=== PATIENT | female | born 1965 | race Caucasian/White ===

== ENCOUNTER → 2017-02-22 | Outpatient (CLI) | payer OTHER ==
[~2017-02-22] MED LIST: FLOMAX0.4 MG PO; NORCO 5-325 TA1 EACH PO; ONDANSETRON HCL4 M2 PO; WOMEN'S DAILY1 EAC1
== END ==
LOC: RAD 10:25
DX: Z12.31 Encounter for screening mammogram for malignant neoplasm of breast (principal)